=== PATIENT | male | born 1990 | race Caucasian/White ===

== ENCOUNTER 2018-01-01 10:39 | Emergency (ER) | payer SELFPAY ==
[~2018-01-01] VITALS: Ht 172.7 cm; Wt 93.0 kg
--- NOTE | 2018-01-01 11:07 | NUR ---
PT WAS EVALUATED BY DR VELASQUEZ. PT WAS D/C TO HOME. D/C INSTRUCTIONS GIVEN TO THE PT.
[2018-01-01 11:08] VITALS: BP 128/81
== END 2018-01-01 11:25 | disposition home or self-care (01) ==
LOC: ER 10:39
DX: R21 Rash and other nonspecific skin eruption (principal); F17.200 Nicotine dependence, unspecified, uncomplicated
CPT/HCPCS: A4663